=== PATIENT | male | born 1970 | race Hispanic/Latino ===

== ENCOUNTER 2023-12-05 05:42 | Day surgery (SDC) | payer OTHER ==
[2023-12-01 11:29] LABS: BASOPHILS # (AUTO) 0.04 K/uL (0.00-0.20); BASOPHILS % (AUTO) 0.6 % (0.0-5.0); EOSINOPHILS # (AUTO) 0.25 K/uL (0.00-0.70); EOSINOPHILS % (AUTO) 3.4 % (0.0-8.0); HEMATOCRIT 44.3 % (42-54); IMMATURE GRANULOCYTE ABSOLUTE 0.03 K/uL (0-1); LYMPHOCYTES % (AUTO) 27.3 % (21.0-51.0); MEAN CORPUSCULAR HEMOGLOBIN 31.2 pg (27.0-33.0); MEAN CORPUSCULAR HGB CONC 33.6 g/dL (32.0-36.0); MEAN CORPUSCULAR VOLUME 92.7 fL (79-99); MONOCYTES # (AUTO) 0.6 K/uL (0.1-1.0); NEUTROPHILS # (AUTO) 4.4 K/uL (1.8-7.7); NEUTROPHILS % (AUTO) 60.3 % (40.0-77.0); PLATELET COUNT (AUTO) 213 K/uL (130-400); RED BLOOD CELL COUNT(AUTO) 4.78 MIL/uL (4.50-6.20); RED CELL DISTRIBUTION WIDTH 12.4 % (11.0-15.5); WHITE BLOOD COUNT (AUTO) 7.3 K/uL (4.8-10.8)
[2023-12-01 11:37] VITALS: BP 125/78; PULSE 64; RESP 20
[2023-12-01 11:42] LABS: ALBUMIN 3.9 g/dL (3.5-5.0); CREATININE 0.7 mg/dL (0.5-1.5)
[~2023-12-05] VITALS: Ht 175.3 cm; Wt 123.7 kg
[2023-12-05] VITALS (18 sets, daily range): BP systolic 109–133; BP diastolic 58–96; PULSE 48–66; RESP 10–60
[~2023-12-05 05:42] MED LIST: LISI10TA24 PO; METF-444 PO; SERT-440 PO
[2023-12-05] MEDS ORDERED: 0.9%NACL 1000ML 1,000 ML IV ONE (06:13)
[2023-12-05] MEDS: CEFAZOLIN SODIUM 1 GM VIAL ONE ×2 (06:32→07:15)
[2023-12-05] MEDS ORDERED: ACETAMINOPHEN 1,000 MG/100 ML VIAL IV ONE (06:46)
[2023-12-05] MEDS ORDERED: KETAMINE HCL 100 MG/ML 5ML VIAL IJ ONE (06:46)
[2023-12-05] MEDS ORDERED: LIDOCAINE PF 100MG/5ML (2%) SYRINGE 5ML ONE (06:52)
[2023-12-05] MEDS ORDERED: PROPOFOL 10 MG/ML 20ML VIAL IV ONE (06:53)
[2023-12-05] MEDS ORDERED: MIDAZOLAM HCL 1 MG/ML 2ML VIAL ONE (06:53)
[2023-12-05] MEDS ORDERED: ROCURONIUM BROMIDE 10MG/1ML 5ML VL ONE (06:53)
[2023-12-05] MEDS ORDERED: FENTANYL CITRATE PF 50 MCG/1 ML 2ML VIAL ONE (06:53)
[2023-12-05] MEDS ORDERED: ONDANSETRON 4MG INJ ONE ×2 (07:28→08:48)
[2023-12-05] MEDS ORDERED: DEXAMETHASONE SOD PHOSPHATE 10MG/ML 1ML VIAL ONE (07:28)
[2023-12-05] MEDS ORDERED: BUPIVACAINE/PF 0.5% 30ML VIAL ONE (07:46)
[2023-12-05] MEDS ORDERED: GLYCOPYRROLATE 0.2 MG/ML 5 ML VIAL ONE (08:05)
[2023-12-05] MEDS ORDERED: NEOSTIGMINE METHYLSULFATE 1MG/ML IV ONE (08:05)
[2023-12-05] MEDS ORDERED: ACET-2079 PO (08:32)
[2023-12-05] MEDS ORDERED: MEPERIDINE-PF 25 MG/ML SYG ONE (08:48)
[2023-12-05] MEDS ORDERED: KETOROLAC 30MG VIAL (30MG/ML) ONE (08:49)
== END 2023-12-05 10:20 | disposition home or self-care (01) ==
LOC: DAH 05:42
PROVIDERS: ATTEND Student in an Organized Health Care Education/Training Program
DX: M23.221 Derangement of posterior horn of medial meniscus due to old tear or injury, right knee (principal); M17.11 Unilateral primary osteoarthritis, right knee; M22.41 Chondromalacia patellae, right knee; E11.9 Type 2 diabetes mellitus without complications; I10 Essential (primary) hypertension; F43.10 Post-traumatic stress disorder, unspecified; G47.30 Sleep apnea, unspecified; Z79.84 Long term (current) use of oral hypoglycemic drugs; Z79.899 Other long term (current) drug therapy; Z99.89 Dependence on other enabling machines and devices
CPT/HCPCS: 82040; 80048; 85025; 84134; 86140; 36415; 29881; 97161; 82948 ×3; 97116; A4663; A4649; J3010; J0690; J1100; J7030; J3490 ×3; J2001; J2250; J2704; J2405 ×2; J1885; J2710; J0665; J2175; A6223; A4930; A5120; A4215; A4223; A4222; A4221; A6450